=== PATIENT | female | born 1990 | race Hispanic/Latino ===

== ENCOUNTER 2021-08-10 17:50 | Emergency (ER) | payer OTHER ==
[~2021-08-10] VITALS: Ht 157.5 cm; Wt 80.3 kg
[2021-08-10] MEDS ORDERED: 0.9%NACL 1000ML 1,000 ML IV ONE ×2 (17:53→18:00)
[2021-08-10] MEDS ORDERED: IBUPROFEN 800 MG TAB PO ONE (18:00)
[2021-08-10] MEDS ORDERED: ACETAMINOPHEN 500 MG TABLET PO ONE (18:00)
[2021-08-10] MEDS ORDERED: ONDANSETRON 4MG INJ ONE (18:11)
[2021-08-10 18:14] LABS: APPEARANCE,URINE Cloudy (CLEAR); BILIRUBIN,URINE Negative (NEGATIVE); COLOR,URINE Yellow (YELLOW); GLUCOSE, URINE (UA) >=1000 mg/dL (NEGATIVE); KETONES,URINE 15 mg/dL (NEGATIVE); LEUKOCYTE ESTERASE ,URINE Trace (NEGATIVE); NITRATE,URINE Negative (NEGATIVE); OCCULT BLOOD,URINE Negative (NEGATIVE); PROTEIN,URINE Negative (NEGATIVE)
[2021-08-10 18:15] LABS: BASOPHILS % (AUTO) 0.1 % (0.0-5.0); EOSINOPHILS % (AUTO) 0.7 % (0.0-8.0); HEMATOCRIT 44.7 % (36-48); LYMPHOCYTES % (AUTO) 11.7 % (21.0-51.0); MEAN CORPUSCULAR HEMOGLOBIN 29.1 pg (27.0-33.0); MEAN CORPUSCULAR HGB CONC 33.8 g/dL (32.0-36.0); MEAN CORPUSCULAR VOLUME 86.1 fL (79-99); MONOCYTES % (AUTO) 4.7 % (3.0-13.0); NEUTROPHILS % (AUTO) 82.4 % (40.0-77.0); PLATELET COUNT (AUTO) 264 K/uL (130-400); RED BLOOD CELL COUNT(AUTO) 5.19 MIL/uL (4.00-5.50); RED CELL DISTRIBUTION WIDTH 12.5 % (11.0-15.5); WHITE BLOOD COUNT (AUTO) 9.7 K/uL (4.8-10.8)
[2021-08-10 18:24] LABS: HCG,QUAL RESULT NEGATIVE (NEGATIVE)
[2021-08-10 18:26] LABS: CREATININE 0.7 mg/dL (0.5-1.5); POTASSIUM 3.7 mmol/L (3.5-5.1)
[2021-08-10 18:30] LABS: RBC,URINE None Seen /HPF (0-1)
[2021-08-10] MEDS ORDERED: ONDANSETRON 4MG INJ IVP ONE (18:30)
[2021-08-10 18:31] LABS: ALBUMIN 3.2 g/dL (3.5-5.0); BACTERIA,URINE Rare /HPF (None Seen); BILIRUBIN,TOTAL 0.6 mg/dL (0.2-1.0); TOTAL PROTEIN, SERUM 8.1 g/dL (6.0-8.3)
[2021-08-10 18:40] VITALS: BP 117/71
[2021-08-10] MEDS ORDERED: CEFTRIAXONE 1G VIAL ONE (18:51)
[2021-08-10] MEDS ORDERED: INSULIN HUMULIN R 100 UNIT/ML 3ML ONE (18:52)
[2021-08-10] MEDS ORDERED: CEFTRIAXONE 1G VIAL IVP ONE (19:00)
[2021-08-10] MEDS ORDERED: INSULIN HUMULIN R 100 UNIT/ML 3ML SQ ONE (19:00)
[2021-08-10] MEDS ORDERED: CEPH500B PO (19:25)
== END 2021-08-10 19:39 | disposition home or self-care (01) ==
LOC: EDH 17:50
DX: N39.0 Urinary tract infection, site not specified (principal); E86.0 Dehydration; E87.1 Hypo-osmolality and hyponatremia; E11.9 Type 2 diabetes mellitus without complications; Z20.822 Contact with and (suspected) exposure to COVID-19; E66.9 Obesity, unspecified; Z88.0 Allergy status to penicillin
CPT/HCPCS: 36415; 71045; 80053; 81001; 81025; 82948; 83605; 85025; 87040 ×2; 87088; 87635; 87804 ×2; 87880; 96361; 96372; 96374; 96375; 99284; C9803; J0696; J1815; J2405; J7030

== ENCOUNTER 2021-10-14 22:32 | Emergency (ER) | payer OTHER ==
[~2021-10-14] VITALS: Ht 157.5 cm; Wt 83.9 kg
[~2021-10-14 22:32] MED LIST: CEPH500B PO
[2021-10-14 23:15] LABS: HEMATOCRIT 43.2 % (36-48); MEAN CORPUSCULAR HEMOGLOBIN 28.6 pg (27.0-33.0); MEAN CORPUSCULAR HGB CONC 33.8 g/dL (32.0-36.0); MEAN CORPUSCULAR VOLUME 84.7 fL (79-99); PLATELET COUNT (AUTO) 274 K/uL (130-400); RED CELL DISTRIBUTION WIDTH 12.3 % (11.0-15.5); WHITE BLOOD COUNT (AUTO) 8.5 K/uL (4.8-10.8)
[2021-10-14 23:19] LABS: BASOPHILS % (AUTO) 0.2 % (0.0-5.0); LYMPHOCYTES % (AUTO) 22.6 % (21.0-51.0); MONOCYTES % (AUTO) 7.6 % (3.0-13.0); NEUTROPHILS % (AUTO) 68.3 % (40.0-77.0)
[2021-10-14] MEDS ORDERED: CLINDAMYCIN 150 MG CAP PO ONE (23:30)
[2021-10-14 23:37] LABS: CREATININE 0.8 mg/dL (0.5-1.5); POTASSIUM 4.2 mmol/L (3.5-5.1)
[2021-10-14] MEDS ORDERED: DEXAMETHASONE 4 MG TAB ONE (23:39)
[2021-10-14] MEDS ORDERED: IBUPROFEN 600 MG TABLET ONE (23:39)
[2021-10-14] MEDS ORDERED: INSULIN HUMULIN R 100 UNIT/ML 3ML SQ STA (23:41)
[2021-10-14] MEDS ORDERED: INSULIN HUMULIN R 100 UNIT/ML 3ML ONE (23:48)
[2021-10-14 23:53] VITALS: BP 147/85
[2021-10-14] MEDS ORDERED: IBUP-2077 PO (23:59)
[2021-10-14] MEDS ORDERED: CLIN-141 PO (23:59)
[2021-10-15] MEDS ORDERED: DEXAMETHASONE 4 MG TAB PO SCH
[2021-10-15] MEDS ORDERED: IBUPROFEN 600 MG TABLET PO ONE
== END 2021-10-15 00:09 | disposition home or self-care (01) ==
LOC: EDH 22:32
DX: J02.0 Streptococcal pharyngitis (principal); E11.65 Type 2 diabetes mellitus with hyperglycemia; Z20.822 Contact with and (suspected) exposure to COVID-19; Z79.899 Other long term (current) drug therapy; Z88.0 Allergy status to penicillin
CPT/HCPCS: 36415; 80048; 85025; 87635; 87804 ×2; 87880; 96372; 99284; C9803; J1815; J8540

== ENCOUNTER 2022-06-29 11:18 | Emergency (ER) | payer OTHER ==
[~2022-06-29] VITALS: Ht 157.5 cm; Wt 80.7 kg
[~2022-06-29 11:18] MED LIST changes: +CLIN-141 PO; +IBUP-2077 PO
[2022-06-29] MEDS ORDERED: ACETAMINOPHEN 500 MG TABLET ONE (12:07)
[2022-06-29] MEDS ORDERED: CEPH500B PO (12:24)
[2022-06-29] MEDS ORDERED: INSULIN HUMULIN R 100 UNIT/ML 3ML IV ONE (12:30)
[2022-06-29] MEDS ORDERED: 0.9%NACL 1000ML 1,000 ML IV SCH (12:30)
[2022-06-29] MEDS ORDERED: CEFTRIAXONE 1G VIAL IM SCH (12:30)
[2022-06-29 13:01] VITALS: BP 136/91
== END 2022-06-29 14:18 | disposition home or self-care (01) ==
LOC: EDH 11:18
DX: E11.65 Type 2 diabetes mellitus with hyperglycemia (principal); J02.0 Streptococcal pharyngitis; E86.0 Dehydration; Z20.822 Contact with and (suspected) exposure to COVID-19; E66.9 Obesity, unspecified; Z88.0 Allergy status to penicillin; Z79.1 Long term (current) use of non-steroidal anti-inflammatories (NSAID); Z68.32 Body mass index [BMI] 32.0-32.9, adult
CPT/HCPCS: 99284; 96374; 87635; 87880; 87804 ×2; 82948 ×2; 96372; J1815; C9803; J7030; J0696